=== PATIENT | male | born 1940 | race Caucasian/White ===

== ENCOUNTER 2016-06-12 11:16 | Observation (INO) | payer MEDICARE, OTHER ==
[2016-06-12] MEDS ORDERED: Furosemide 40 MG/4 ML VIAL IV ONE (14:45)
[2016-06-12] MEDS ORDERED: METHYLPRED SOD SUCC 125 MG/2 ML VIAL IV ONE (14:45)
[2016-06-12 15:11] VITALS: BP_SYST 140; BP_SYST 142; RESP 26; TEMP 98.7
[2016-06-12] MEDS: DUONEB INH SCH ×3 (16:27→22:45)
[2016-06-12 16:28] VITALS: RESP 20; RESP 24
[2016-06-12] MEDS: ASPIRIN 81 MG CHEW TAB PO SCH (18:03)
[2016-06-12] MEDS: VENLAFAXINE HCL 75 MG TAB PO SCH (18:04)
[2016-06-12] MEDS: SOLIFENACIN 5 MG TAB PO SCH (18:04)
[2016-06-12] MEDS: NAPROXEN 250 MG TAB PO SCH (18:05)
[2016-06-12] MEDS: ATENOLOL 25 MG TAB PO SCH (18:06)
[2016-06-12] MEDS ORDERED: THEOPHYLLINE SR 200 MG CAP PO SCH (18:07)
[2016-06-12] MEDS: THEOPHYLLINE SR 200 MG CAP PO SCH (18:09)
[2016-06-12] MEDS: FLUTICASONE 0.05% NA BTL NARE EACH SCH (19:19)
[2016-06-12 19:30] VITALS: BP_SYST 152; RESP 22; TEMP 98.9
[2016-06-12] MEDS: NEB-BUDESONIDE 0.5 MG INH SCH (19:52)
[2016-06-12] MEDS: NEB-BROVANA 15 MCG/2 ML INH SCH (19:52)
[2016-06-12] MEDS: *HOME MEDS IN MED CART XX SCH (20:00)
[2016-06-12] MEDS: METFORMIN 500 MG TAB PO SCH (20:36)
[2016-06-12] MEDS: PANTOPRAZOLE 40 MG TAB PO SCH (20:38)
[2016-06-12] MEDS ORDERED: FENOFIBRATE 145 MG TAB PO SCH (21:00)
[2016-06-12] MEDS ORDERED: Finasteride 5 MG TAB PO SCH (21:00)
[2016-06-12] MEDS ORDERED: TRAZODONE 50 MG TAB PO SCH (21:00)
[2016-06-12] MEDS ORDERED: DOXAZOSIN 4 MG TAB PO SCH (21:00)
[2016-06-12] MEDS ORDERED: MONTELUKAST 10 MG TAB PO SCH (21:00)
[2016-06-12] MEDS ORDERED: ESBRIET 267 MG PO SCH (21:00)
[2016-06-12 22:35] VITALS: BP_SYST 146; RESP 24; TEMP 98
[2016-06-12] MEDS: METHYLPRED SOD SUCC 125 MG/2 ML VIAL IV SCH (23:22)
[2016-06-13] MEDS: DUONEB INH SCH ×4 (03:00→15:02)
[2016-06-13 03:50] VITALS: BP_SYST 157; TEMP 97.7
[2016-06-13 03:51] VITALS: RESP 24
[2016-06-13] MEDS: PANTOPRAZOLE 40 MG TAB PO SCH ×2 (06:27→16:35)
[2016-06-13] MEDS: NEB-BUDESONIDE 0.5 MG INH SCH (06:47)
[2016-06-13] MEDS: NEB-BROVANA 15 MCG/2 ML INH SCH (06:48)
[2016-06-13 07:36] VITALS: BP_SYST 142; RESP 16; TEMP 97.6
[2016-06-13] MEDS: VENLAFAXINE HCL 75 MG TAB PO SCH (07:45)
[2016-06-13] MEDS: NAPROXEN 250 MG TAB PO SCH (07:45)
[2016-06-13] MEDS: ASPIRIN 81 MG CHEW TAB PO SCH (07:45)
[2016-06-13] MEDS: SOLIFENACIN 5 MG TAB PO SCH (07:45)
[2016-06-13] MEDS: THEOPHYLLINE SR 200 MG CAP PO SCH (07:45)
[2016-06-13] MEDS: ATENOLOL 25 MG TAB PO SCH (07:45)
[2016-06-13] MEDS: FLUTICASONE 0.05% NA BTL NARE EACH SCH (07:46)
[2016-06-13] MEDS: *HOME MEDS IN MED CART XX SCH (07:46)
[2016-06-13] MEDS: METHYLPRED SOD SUCC 125 MG/2 ML VIAL IV SCH ×2 (07:46→16:36)
[2016-06-13] MEDS: METFORMIN 500 MG TAB PO SCH (07:47)
[2016-06-13] MEDS: ESBRIET PO SCH ×2 (07:47→11:11)
[2016-06-13] MEDS ORDERED: TUSSIONEX SUSP UDC PO PRN (09:20)
[2016-06-13 11:00] VITALS: BP_SYST 131; RESP 16; TEMP 98
[2016-06-13] MEDS ORDERED: LEVOFLOXACIN 750 MG/150 ML 150 ML IV SCH (13:50)
[2016-06-13 15:02] VITALS: BP_SYST 131; RESP 16; TEMP 98
[2016-06-13 15:40] VITALS: BP_SYST 149; RESP 16; TEMP 97.9
== END 2016-06-13 13:58 | disposition home or self-care (01) ==
LOC: ENRESERVTM → ENRESERVDT → ENPENDDIS 14:03 → 2NO 14:03
PROVIDERS: ADMIT Internal Medicine; ATTEND Internal Medicine
DX: J44.1 Chronic obstructive pulmonary disease with (acute) exacerbation (principal); Z87.891 Personal history of nicotine dependence; Z79.82 Long term (current) use of aspirin; Z79.84 Long term (current) use of oral hypoglycemic drugs; K21.9 Gastro-esophageal reflux disease without esophagitis; I10 Essential (primary) hypertension; M19.90 Unspecified osteoarthritis, unspecified site; N40.0 Benign prostatic hyperplasia without lower urinary tract symptoms; E66.9 Obesity, unspecified; G47.33 Obstructive sleep apnea (adult) (pediatric); R09.02 Hypoxemia
CPT/HCPCS: 71020; 80053; 80198; 82803; 83880; 85025; 94640; 94762; G0378; J2930; 94799